=== PATIENT | male | born 1955 | race American Indian/Alaskan Native ===

== ENCOUNTER 2017-04-11 10:41 | Emergency (ER) | payer MEDICAID ==
[2017-04-11 11:00] VITALS: BP 110/68
--- NOTE | 2017-04-11 11:10 | EDM.PDOC ---
ED HPI GENERAL MEDICAL PROBLEM - General Chief Complaint: Skin Complaint Stated Complaint: RASH Time Seen by Provider: 04/11/17 10:56 Source of Information: Reports: Patient History Limitations: Reports: No Limitations - History of Present Illness INITIAL COMMENTS - FREE TEXT/NARRATIVE: 61 y.o.w.m, came to the for a generalized itch for 3 years, off and on. Pt was seen by a web design specialist who prescribed vistaril and a "cream"(?). It was not hydrocortison. Pt is walking 1 mile a day and is occ homeless. He is exposed to sun of/on. Itch does not get wore with son exposure. No N/V/D or any other acute medical issues at this time. 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 It helped) - Related Data Allergies Allergy/AdvReac Type Severity Reaction Status Date / Time No Known Allergies Allergy Verified 04/11/17 10:46 Home Meds: Home Meds hydrOXYzine Pamoate [Vistaril] 50 mg PO BID PRN #20 cap 04/11/17 [Rx] Social & Family History - Tobacco Use Smoking Status *Q: Current Every Day Smoker Years of Tobacco use: 15 Packs/Tins Daily: 1 - Recreational Drug Use Recreational Drug Use: Yes Drug Use in Last 12 Months: Yes Recreational Drug Type: Reports: Marijuana/Hashish Recreational Drug Use Frequency: Monthly ED ROS GENERAL - Review of Systems Review Of Systems: See Below Constitutional: Reports: No Symptoms HEENT: Reports: No Symptoms Respiratory: Reports: No Symptoms Cardiovascular: Reports: No Symptoms Endocrine: Reports: No Symptoms GI/Abdominal: Reports: No Symptoms : Reports: No Symptoms Musculoskeletal: Reports: No Symptoms Skin: Reports: Rash Neurological: Reports: No Symptoms Psychiatric: Reports: No Symptoms Hematologic/Lymphatic: Reports: No Symptoms Immunologic: Reports: No Symptoms ED EXAM, SKIN/RASH Exam: See Below Exam Limited By: No Limitations General Appearance: Alert, WD/WN, No Apparent Distress Eye Exam: Bilateral Eye: Normal Inspection Ears: Normal External Exam Nose: Normal Inspection, Normal Mucosa Throat/Mouth: Normal Inspection, Normal Lips Head: Atraumatic, Normocephalic Neck: Normal Inspection, Supple, Non-Tender, Full Range of Motion Respiratory/Chest: No Respiratory Distress, Lungs Clear, Normal Breath Sounds Cardiovascular: Normal Peripheral Pulses, Regular Rate, Rhythm, No Edema Peripheral Pulses: 1+: Femoral (L), Femoral (R) GI/Abdominal: Normal Bowel Sounds, Soft, Non-Tender (Male) Exam: Deferred Rectal (Males) Exam: Deferred Back Exam: Normal Inspection, Full Range of Motion Extremities: Normal Inspection, Normal Range of Motion, Non-Tender, No Pedal Edema Neurological: Alert, Oriented, CN II-XII Intact, Normal Cognition Psychiatric: Normal Affect, Normal Mood Skin: Warm, Dry, Rash (urticarial rash) Location, Skin: Generalized Characteristics: Urticarial Lymphatic: No Adenopathy Course - Vital Signs Text/Narrative:: 61 y.o.w.m, came to the for a generalized itch for 3 years, off and on. Pt was seen by a web design specialist who prescribed vistaril and a "cream"(?). It was not hydrocortison. Pt is walking 1 mile a day and is occ homeless. He is exposed to sun of/on. Itch does not get wore with son exposure. No N/V/D or any other acute medical issues at this time. PEL muscular built 61 years old male, NAD, with minor gen scratch vela. Impression: Urticaria, generalized Tx: Vistaril Plan: D/C with instructions. Pt was advised to find the name of the "cream" and i may be able to write a prescription fir it. Last Recorded V/S: Last Vital Signs Temp 36.8 C 04/11/17 10:56 Pulse 79 04/11/17 10:56 Resp 18 04/11/17 10:56 BP 110/68 04/11/17 10:56 Pulse Ox 96 04/11/17 10:56 Departure - Departure Time of Disposition: 11:06 Disposition: Home, Self-Care 01 Condition: Good Clinical Impression: Urticaria - Discharge Information Prescriptions: hydrOXYzine Pamoate [Vistaril] 50 mg PO BID PRN #20 cap PRN Reason: Itching Referrals: PCP,None [Ordering Only Provider] - Forms: ED Department Discharge Additional Instructions: Please wash your skin and cloths daily, please take the meds as recommended, please follow up with a web design specialist a.[email or web address].p, please come back if your symptoms get worse acutely.
== END 2017-04-11 11:20 | disposition home or self-care (01) ==
LOC: FB.ED 10:41
DX: L50.9 Urticaria, unspecified (principal); F17.210 Nicotine dependence, cigarettes, uncomplicated
CPT/HCPCS: 99282

== ENCOUNTER 2017-06-28 06:15 | Emergency (ER) | payer MEDICAID ==
[2017-06-28 06:30] VITALS: BP 153/81
[2017-06-28] MEDS ORDERED: Diphtheria,Pertussis(Acell),Tetanus Vaccine 0.5 ML SDV IM ONE (06:54)
[2017-06-28] MEDS ORDERED: Ibuprofen 600 MG Tab PO ONE (06:54)
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
== END 2017-06-28 07:15 | disposition home or self-care (01) ==
LOC: FB.ED 06:15
DX: S20.311A Abrasion of right front wall of thorax, initial encounter (principal); V29.9XXA Motorcycle rider (driver) (passenger) injured in unspecified traffic accident, initial encounter
CPT/HCPCS: 99283; A9270

== ENCOUNTER 2017-07-12 18:13 | Emergency (ER) | payer MEDICAID ==
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
[2017-07-12] MEDS ORDERED: Sodium Chloride 0.9% 10 ML Syringe FLUSH PRN (18:58)
[2017-07-12 21:59] VITALS: BP 103/66
== END 2017-07-12 21:42 | disposition home or self-care (01) ==
LOC: FB.ED 18:13
DX: F10.129 Alcohol abuse with intoxication, unspecified (principal); Y90.1 Blood alcohol level of 20-39 mg/100 ml
CPT/HCPCS: 36415; 99284; G0480; J7050